=== PATIENT | male | born 2000 | race African-American/Black ===

== ENCOUNTER 2019-04-12 13:18 | Emergency (ER) | payer SELFPAY ==
[~2019-04-12] VITALS: Ht 165.1 cm; Wt 61.4 kg
[~2019-04-12 13:18] MED LIST: VENTOLIN0.09 MG IH
[2019-04-12 13:29] VITALS: BP 123/68; TEMP 98.4
[2019-04-12] MEDS ORDERED: ALBUTEROL SULFAT3 M3 IH (13:40)
[2019-04-12] MEDS ORDERED: MOTRIN 200200 MG/TAB PO (13:41)
[2019-04-12 14:36] VITALS: PULSE 85
== END 2019-04-12 14:37 | disposition home or self-care (01) ==
LOC: COL.ER 13:18
DX: B34.9 Viral infection, unspecified (principal); J45.909 Unspecified asthma, uncomplicated; F17.210 Nicotine dependence, cigarettes, uncomplicated